=== PATIENT | male | born 1995 | race Caucasian/White ===

== ENCOUNTER 2020-11-25 03:15 | Emergency (ER) | payer BC ==
[2020-11-25 03:28] VITALS: BP 103/88; PULSE 102
[2020-11-25] MEDS ORDERED: Famotidine 20 MG/2 ML SDV IVPUSH ONE (03:33)
[2020-11-25] MEDS ORDERED: Lactated Ringers 1,000 ML IV ONE (03:33)
[2020-11-25] MEDS ORDERED: Ondansetron 4 MG/2 ML SDV IVPUSH ONE (03:34)
--- NOTE | 2020-11-25 03:35 | EDM.PDOC ---
ED HPI GENERAL MEDICAL PROBLEM - General Chief Complaint: Gastrointestinal Problem Stated Complaint: DEHYDRATION/VOMITING Time Seen by Provider: 11/25/20 03:20 Source of Information: Reports: Patient History Limitations: Reports: No Limitations - History of Present Illness INITIAL COMMENTS - FREE TEXT/NARRATIVE: He is 24-year-old male with a past medical history of acid reflux presenting with a chief complaint of vomiting. Patient reports vomiting started around 10:00 last night. Patient reports feeling sick to her stomach but no significant abdominal pain. Patient reports no blood or bile in his vomit. Patient unable to keep down any foods or liquids. Patient states he feels this is exacerbated by acid reflux. He states he had food late at night as well as cough yesterday which usually seems to trigger his acid reflux. Patient denies any diarrhea, constipation, obstipation. - Related Data Allergies Allergy/AdvReac Type Severity Reaction Status Date / Time No Known Allergies Allergy Verified 11/25/20 03:24 Home Meds: Home Meds Loratadine 10 mg PO ASDIRECTED 11/25/20 [History] Ondansetron [Zofran ODT] 4 mg PO Q6H PRN #12 tab.dis 11/25/20 [Rx] diphenhydrAMINE [Benadryl] 25 mg PO ASDIRECTED 11/25/20 [History] Past Medical History - Past Health History Medical/Surgical History: Denies Medical/Surgical History HEENT History: Reports: Allergic Rhinitis - Past Surgical History GI Surgical History: Reports: Appendectomy Social & Family History - Tobacco Use Tobacco Use Status *Q: Unknown Ever Used Tobacco - Living Situation & Occupation Living situation: Reports: Single Occupation: Employed ED ROS GENERAL - Review of Systems Review Of Systems: See Below Free Text/Narrative/Comment: In addition to that documented in the HPI above, the additional ROS was obtained: Constitutional: Denies fevers or chills Eyes: Denies vision changes ENMT: Denies sore throat CV: Denies chest pain Resp: Denies SOB GI: Per HPI : Denies painful urination MSK: Denies recent trauma Skin: Denies new rashes Neuro: Denies new numbness or tingling or weakness Endocrine: Denies unexpected weight loss Heme: Denies bleeding disorders ED EXAM, GI/ABD - Physical Exam Exam: See Below Text/Narrative:: I have reviewed the triage vital signs Const: Well nourished, well developed, appears stated age Eyes: Pupils Equal and reactive to light bilaterally, no conjunctival injection HENT: No signs of trauma or swelling, Neck supple without meningismus CV: Regular Rate Rhythm, Warm, well-perfused extremities RESP: Unlabored respiratory effort GI: soft, non-tender, non-distended, no masses MSK: No gross deformities appreciated Skin: Warm, dry. 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 Sensation and motor function of extremities grossly intact. Psych: Appropriate mood and affect. Course - Vital Signs Last Recorded V/S: Last Vital Signs Temp 36.6 C 11/25/20 03:27 Pulse 102 H 11/25/20 03:27 Resp 15 11/25/20 03:27 BP 103/88 11/25/20 03:27 Pulse Ox 98 11/25/20 03:27 - Orders/Labs/Meds Labs: Laboratory Tests 11/25/20 11/25/20 Range/Units 03:46 03:46 WBC 10.85 H (4.23-9.07) K/mm3 RBC 5.84 (4.63-6.08) M/mm3 Hgb 16.6 D (13.7-17.5) gm/dl Hct 51.1 H (40.1-51.0) % MCV 87.5 (79.0-92.2) fl MCH 28.4 (25.7-32.2) pg MCHC 32.5 (32.2-35.5) g/dl RDW Std Deviation 41.7 (35.1-43.9) fL Plt Count 243 (163-337) K/mm3 MPV 9.5 (9.4-12.3) fl Neut % (Auto) 91.0 H (34.0-67.9) % Lymph % (Auto) 3.7 L (21.8-53.1) % Griggs % (Auto) 4.4 L (5.3-12.2) % Eos % (Auto) 0.5 L (0.8-7.0) Baso % (Auto) 0.2 (0.1-1.2) % Neut # (Auto) 9.88 H (1.78-5.38) K/mm3 Lymph # (Auto) 0.40 L (1.32-3.57) K/mm3 Griggs # (Auto) 0.48 (0.30-0.82) K/mm3 Eos # (Auto) 0.05 (0.04-0.54) K/mm3 Baso # (Auto) 0.02 (0.01-0.08) K/mm3 Manual Slide Review Abnormal smear Sodium 142 (136-145) mEq/L Potassium 4.2 (3.5-5.1) mEq/L Chloride 104 (98-107) mEq/L Carbon Dioxide 29 (21-32) mEq/L Anion Gap 13.2 (5-15) BUN 15 (7-18) mg/dL Creatinine 1.2 (0.7-1.3) mg/dL Est Cr Clr Drug Dosing 103.29 mL/min Estimated GFR (MDRD) > 60 (>60) mL/min BUN/Creatinine Ratio 12.5 L (14-18) Glucose 126 H (70-99) mg/dL Calcium 8.9 (8.5-10.1) mg/dL Total Bilirubin 0.7 (0.2-1.0) mg/dL AST 16 (15-37) U/L ALT 21 (16-63) U/L Alkaline Phosphatase 70 (46-116) U/L Total Protein 8.1 (6.4-8.2) g/dl Albumin 4.6 (3.4-5.0) g/dl Globulin 3.5 gm/dL Albumin/Globulin Ratio 1.3 (1-2) Lipase 132 (73-393) U/L Meds: Medications Discontinued Medications Generic Name Dose Route Start Last Admin Trade Name Freq PRN Reason Stop Dose Admin Famotidine 20 mg 11/25/20 03:33 11/25/20 03:43 Famotidine 20 Mg/2 Ml Sdv IVPUSH 11/25/20 03:34 20 mg ONETIME ONE Administration Lactated Ringer's 1,000 mls @ 1,000 mls/hr 11/25/20 03:33 11/25/20 03:41 Ringers, Lactated IV 11/25/20 04:32 1,000 mls/hr .BOLUS ONE Administration Ondansetron HCl 4 mg 11/25/20 03:34 11/25/20 03:42 Ondansetron 4 Mg/2 Ml Sdv IVPUSH 11/25/20 03:35 4 mg ONETIME ONE Administration Departure - Departure Time of Disposition: 04:56 Disposition: Home, Self-Care 01 Clinical Impression: (Ruled Out): Pyloric stenosis - Discharge Information Prescriptions: Ondansetron [Zofran ODT] 4 mg PO Q6H PRN #12 tab.dis PRN Reason: Vomiting Referrals: PCP,None [Primary Care Provider] - Forms: ED Department Discharge Sepsis Event Note (ED) - Evaluation Sepsis Screening Result: No Definite Risk - Focused Exam Vital Signs: Vital Signs Temp Pulse Resp BP Pulse Ox 11/25/20 03:27 36.6 C 102 H 15 103/88 98 - Assessment/Plan Assessment:: Patient 24-year-old male presenting with nausea and vomiting. Patient had benign abdominal exam and uncomplicated ER course. Patient given Zofran and IV fluids with improvement of symptoms. Differential diagnosis considered for this patient include pancreatitis, gastroesophageal reflux disease, acute hepatitis, biliary tract disease. Laboratory studies reviewed without significant abnormality. Patient states he feels better. No indication for imaging at this time. Patient will be discharged with mother. Return precautions given as usual.
== END 2020-11-25 05:12 | disposition home or self-care (01) ==
LOC: JD.ED 03:15
DX: R11.2 Nausea with vomiting, unspecified (principal)
CPT/HCPCS: 36415; 80053; 83690; 85025; 96374; 96375; 99284; J2405; J3490; J7120